=== PATIENT | female | born 1945 | race African-American/Black ===

== ENCOUNTER 2019-04-17 15:19 | Emergency (ER) | payer SELFPAY ==
[~2019-04-17] VITALS: Ht 167.6 cm; Wt 100.0 kg
[2019-04-17 17:53] VITALS: BP 136/72
== END 2019-04-17 18:26 | disposition home or self-care (01) ==
LOC: ER 15:19
DX: S09.8XXA Other specified injuries of head, initial encounter (principal); S80.212A Abrasion, left knee, initial encounter; V49.49XA Driver injured in collision with other motor vehicles in traffic accident, initial encounter; Y93.89 Activity, other specified; Y92.89 Other specified places as the place of occurrence of the external cause; Y99.8 Other external cause status; F41.9 Anxiety disorder, unspecified; I10 Essential (primary) hypertension; F17.290 Nicotine dependence, other tobacco product, uncomplicated; Z91.041 Radiographic dye allergy status
CPT/HCPCS: 73562; 73590; 99284